=== PATIENT | female | born 1960 | race Caucasian/White ===

== ENCOUNTER → 2017-01-07 | Outpatient (CLI) | payer BC ==
[~2017-01-07] MED LIST: AMOXICILLIN 50500 MG PO; ASPIRIN CHILDRE81 MG PO; BETAGAN 2 ML2 ML OP; CLINDAMYCIN HC300 MG PO; FLONASE 50 MCG16 GM; HYDROCODONE-APA1 TA1 PO; ISOPTO CARPINE OP; LATANOPROST 2.2.5 ML OP; MOTRIN 400MG.400 MG PO; PRAVACHOL40 MG PO; PREDNISONE 20MG20 MG PO; SIMVASTATIN20 MG PO; ZITHROMAX Z PA250 MG PO; ZOFRAN4 MG PO; [UNRECOGNIZED DRUG - CODE] PO
--- NOTE | 2017-01-07 12:27 | RADIOLOGY REPORT PS360 ---
KNEE-3 VIEWS-RT HISTORY: RT ANTERIOR KNEE PAIN ORDERING PHYSICIAN: Cele Young APRN PATIENT AGE: 56 years COMPARISON: None FINDINGS: No fracture or dislocation. No lytic or blastic change. Normal mineralization. There is slight decrease in the joint space medially Slight increased soft tissue density in the superior patellar region consistent with small knee joint effusion. IMPRESSION: Mild osteoarthritis of the medial compartment with small suprapatellar effusion
== END ==
LOC: RAD 11:13
DX: M25.561 Pain in right knee (principal)